=== PATIENT | female | born 1940 | race Two or more races ===

== ENCOUNTER 2018-11-06 07:10 | Outpatient (CLI) | payer OTHER ==
[~2018-11-06 07:10] MED LIST: SYNTHROID137 MCG; SYNTHROID137 MCG PO
== END 2018-11-06 07:16 | disposition home or self-care (01) ==
LOC: NUCLEAR 07:10
DX: I80.202 Phlebitis and thrombophlebitis of unspecified deep vessels of left lower extremity (principal)

== ENCOUNTER 2019-04-25 09:51 | Emergency (ER) | payer OTHER ==
[~2019-04-25] VITALS: Ht 157.5 cm; Wt 77.1 kg
[2019-04-25] MEDS ORDERED: FORTAMET500 MG PO (10:03)
[2019-04-25] MEDS ORDERED: VASOTEC10 MG PO (10:03)
[2019-04-25] MEDS ORDERED: ZITHROMAX500 MG PO (12:33)
[2019-04-25] MEDS ORDERED: DOLOGEN CAPLET1 EACH PO (12:33)
[2019-04-25] MEDS ORDERED: TUSNEL LIQUID178 ML PO (12:33)
== END 2019-04-25 12:46 | disposition home or self-care (01) ==
LOC: ER 09:51
DX: J06.9 Acute upper respiratory infection, unspecified (principal)

== ENCOUNTER → 2020-07-14 | Outpatient (CLI) | payer OTHER ==
[~2020-07-14] MED LIST changes: +DOLOGEN CAPLET1 EACH PO; +FORTAMET500 MG PO; +TUSNEL LIQUID178 ML PO; +VASOTEC10 MG PO; +ZITHROMAX500 MG PO
== END | disposition home or self-care (01) ==
LOC: MAMO-SONO 08:15
PROVIDERS: ATTEND Internal Medicine
DX: Z12.31 Encounter for screening mammogram for malignant neoplasm of breast (principal); Z87.898 Personal history of other specified conditions; N60.11 Diffuse cystic mastopathy of right breast; I10 Essential (primary) hypertension; M54.5 Low back pain; Z01.810 Encounter for preprocedural cardiovascular examination; E03.8 Other specified hypothyroidism; E78.89 Other lipoprotein metabolism disorders; E11.51 Type 2 diabetes mellitus with diabetic peripheral angiopathy without gangrene; E55.9 Vitamin D deficiency, unspecified; E11.9 Type 2 diabetes mellitus without complications; E66.8 Other obesity; G62.89 Other specified polyneuropathies; E11.42 Type 2 diabetes mellitus with diabetic polyneuropathy

== ENCOUNTER 2020-08-04 11:21 | Outpatient (CLI) | payer OTHER | END 2020-08-06 07:55 | disposition home or self-care (01) | LOC: NUCLEAR 11:21 | PROVIDERS: ATTEND Internal Medicine | DX: M81.0 Age-related osteoporosis without current pathological fracture (principal); M54.5 Low back pain ==

== ENCOUNTER 2020-08-27 13:02 | Outpatient (CLI) | payer OTHER | END 2020-08-27 13:16 | disposition home or self-care (01) | LOC: RAD 13:02 | PROVIDERS: ATTEND Internal Medicine | DX: M54.5 Low back pain (principal) ==

== ENCOUNTER 2021-08-24 09:49 | Outpatient (CLI) | payer OTHER | END 2021-08-24 09:51 | disposition home or self-care (01) | LOC: NUCLEAR 09:49 | PROVIDERS: ATTEND Internal Medicine | DX: M89.9 Disorder of bone, unspecified (principal); I10 Essential (primary) hypertension; E03.9 Hypothyroidism, unspecified; E78.9 Disorder of lipoprotein metabolism, unspecified; E11.51 Type 2 diabetes mellitus with diabetic peripheral angiopathy without gangrene; E55.9 Vitamin D deficiency, unspecified; E66.8 Other obesity; E11.42 Type 2 diabetes mellitus with diabetic polyneuropathy; I70.0 Atherosclerosis of aorta; F17.200 Nicotine dependence, unspecified, uncomplicated; Z88.6 Allergy status to analgesic agent ==

== ENCOUNTER 2022-03-29 08:48 | Outpatient (CLI) | payer OTHER | END 2022-03-29 09:24 | disposition home or self-care (01) | LOC: MAMO-SONO 08:48 | PROVIDERS: ATTEND Internal Medicine | DX: Z12.31 Encounter for screening mammogram for malignant neoplasm of breast (principal) ==

== ENCOUNTER 2023-06-02 09:05 | Outpatient (CLI) | payer OTHER | END 2023-06-02 09:31 | disposition home or self-care (01) | LOC: MAMO-SONO 09:05 | PROVIDERS: ATTEND Internal Medicine | DX: I10 Essential (primary) hypertension (principal); E03.9 Hypothyroidism, unspecified; E78.9 Disorder of lipoprotein metabolism, unspecified; E11.51 Type 2 diabetes mellitus with diabetic peripheral angiopathy without gangrene; E55.9 Vitamin D deficiency, unspecified; E11.9 Type 2 diabetes mellitus without complications; E66.8 Other obesity; M89.9 Disorder of bone, unspecified; G62.9 Polyneuropathy, unspecified; E11.42 Type 2 diabetes mellitus with diabetic polyneuropathy; I70.0 Atherosclerosis of aorta; F17.200 Nicotine dependence, unspecified, uncomplicated; Z12.31 Encounter for screening mammogram for malignant neoplasm of breast ==

== ENCOUNTER 2023-10-07 10:21 | Outpatient (CLI) | payer OTHER ==
[~2023-10-07 10:21] MED LIST changes: +ACTICAL SOFTGE1 EACH; +ACTICAL SOFTGEL1 CAP PO; +ATORVASTATIN CA10 MG; +ATORVASTATIN CA20 MG PO; +AVAPRO75 MG PO; +LISINOPRIL10 MG; +MAGNESIUM500 MG PO; +METFORMIN HCL500 MG PO; +OPTIMAL D31250 MCG; +OSTERA TABLET1 EACH PO; +PERCOCET 5/3251 TAB PO; +SYNTHROID125 MCG PO; +SYNTHROID50 MCG PO; +VIT C-BIOFLAVO1 EACH PO
== END 2023-10-07 10:23 | disposition home or self-care (01) ==
LOC: SONOGRAMA 10:21
PROVIDERS: ATTEND Internal Medicine Gastroenterology
DX: R10.9 Unspecified abdominal pain (principal)

== ENCOUNTER → 2024-02-10 | Emergency (ER) | payer OTHER ==
[~2024-02-10] VITALS: Ht 157.5 cm; Wt 77.1 kg
[~2024-02-10] MED LIST changes: +ORPHENADRINE CITRATE 30 MG/ML AMPUL IM ONE
== END | disposition home or self-care (01) ==
LOC: ER 12:08
DX: S00.93XA Contusion of unspecified part of head, initial encounter (principal); S40.011A Contusion of right shoulder, initial encounter; W18.39XA Other fall on same level, initial encounter; Y93.89 Activity, other specified; Y92.89 Other specified places as the place of occurrence of the external cause; Y99.9 Unspecified external cause status; E11.9 Type 2 diabetes mellitus without complications; Z88.8 Allergy status to other drugs, medicaments and biological substances; M17.11 Unilateral primary osteoarthritis, right knee
CPT/HCPCS: 70450; 72125; 73030; 73521; 73560; 96372; 99284; J2360

== ENCOUNTER 2024-07-23 10:33 | Emergency (ER) | payer OTHER ==
[~2024-07-23] VITALS: Ht 157.5 cm; Wt 77.1 kg
[~2024-07-23 10:33] MED LIST changes: -ORPHENADRINE CITRATE 30 MG/ML AMPUL IM ONE
[2024-07-23] MEDS ORDERED: TRAMADOL HCL 50 MG TABLET PO ONE (12:45)
[2024-07-23] MEDS ORDERED: NEURONTIN300 MG PO (15:30)
== END 2024-07-23 16:38 | disposition home or self-care (01) ==
LOC: ER 10:33
DX: M54.10 Radiculopathy, site unspecified (principal); E11.9 Type 2 diabetes mellitus without complications; Z79.84 Long term (current) use of oral hypoglycemic drugs; Z88.2 Allergy status to sulfonamides; Z88.6 Allergy status to analgesic agent

== ENCOUNTER 2024-09-24 07:50 | Outpatient (CLI) | payer OTHER ==
[~2024-09-24 07:50] MED LIST changes: +NEURONTIN300 MG PO
== END 2024-09-24 07:52 | disposition home or self-care (01) ==
LOC: RAD 07:50
PROVIDERS: ATTEND Internal Medicine
DX: R06.02 Shortness of breath (principal)

== ENCOUNTER 2024-09-25 09:22 | Outpatient (CLI) | payer OTHER | END 2024-09-25 09:26 | disposition home or self-care (01) | LOC: MAMO-SONO 09:22 | PROVIDERS: ATTEND Internal Medicine | DX: N60.11 Diffuse cystic mastopathy of right breast (principal); N60.12 Diffuse cystic mastopathy of left breast; Z12.31 Encounter for screening mammogram for malignant neoplasm of breast ==

== ENCOUNTER 2024-10-15 09:08 | Outpatient (CLI) | payer OTHER | END 2024-10-15 09:13 | disposition home or self-care (01) | LOC: SONOGRAMA 09:08 | PROVIDERS: ATTEND Internal Medicine Endocrinology, Diabetes & Metabolism | DX: C73 Malignant neoplasm of thyroid gland (principal) ==